=== PATIENT | male | born 1980 | race African-American/Black ===

== ENCOUNTER 2017-01-13 19:53 | Emergency (ER) | payer OTHER ==
[~2017-01-13] VITALS: Ht 177.8 cm; Wt 86.2 kg
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
[~2017-01-13 19:53] MED LIST: FLEXERIL10 M1 PO; IBUPROFEN800 MG PO; LORTAB 5/500 TA1 TA1 PO; POLYTRIM EYE DR10 ML OP; VOLTAREN5 ML OP
== END 2017-01-13 21:48 | disposition home or self-care (01) ==
LOC: CFTX 19:53 → CED 19:53 → CFTX 21:10
DX: S09.90XA Unspecified injury of head, initial encounter (principal); Z23 Encounter for immunization; S50.12XA Contusion of left forearm, initial encounter; S70.02XA Contusion of left hip, initial encounter; S60.222A Contusion of left hand, initial encounter; S80.02XA Contusion of left knee, initial encounter; F17.210 Nicotine dependence, cigarettes, uncomplicated; V49.40XA Driver injured in collision with unspecified motor vehicles in traffic accident, initial encounter; Y92.410 Unspecified street and highway as the place of occurrence of the external cause
CPT/HCPCS: 70450; 73130; 90471; 90715; 99284